=== PATIENT | female | born 1995 | race African-American/Black ===

== ENCOUNTER 2016-11-28 03:00 | Inpatient (IN) | payer BC, OTHER ==
[~2016-11-28] VITALS: Ht 149.9 cm; Wt 45.4 kg
--- NOTE | 2016-11-28 03:26 | EMERGENCY ROOM VISIT NOTE ---
History Report prepared by Kehinde: French Ybarra Under the Supervision of: Dr. Nalini Villalobos D.O. First contact with patient: 03:04 Chief Complaint: MENTAL HEALTH EVALUATION Stated Complaint: MENTAL HEALTH History of Present Illness The patient is a 21 year old female who presents to the Emergency Room with complaints of resolved suicidal thoughts beginning today. She has a history of depression. She states that she cut herself today on her left wrist and right leg. The patient states that she has felt depressed lately because she feels that her boyfriend doesn't love her as much as she likes him. Per police, the patient made statements about wanting to hurt herself today. They explain that the patient has a history of suicide attempts, and made two attempts last year. Police states that the patient's two attempts were when she walked out into traffic, and attempted an overdose on pills. The patient admits to drinking alcohol today. Source of History: patient, police Onset: Today Quality: other (suicidal thoughts ) Timing: resolved Review of Systems See HPI for pertinent positives & negatives. A total of 10 systems reviewed and were otherwise negative. Past Medical & Surgical Medical Problems: (1) Depression (2) No active medical problems (3) UTI (urinary tract infection) Family History No pertinent family history stated. Social History Smoking Status: Never Smoker Marital Status: single Housing Status: lives with roommate Occupation Status: [employer] student Current/Historical Medications Scheduled Control Pills ( Control Pills), 1 TAB PO DAILY Omeprazole (Prilosec), 20 MG PO DAILY Sertraline (Zoloft), 50 MG PO DAILY Allergies Coded Allergies: Shellfish (Verified Allergy, Intermediate, GI SYMPTOMS, 11/28/16) Uncoded Allergies: All fruit (Allergy, Unknown, RASH, 11/28/16) Physical Exam Vital Signs Date Time Temp Pulse Resp B/P Pulse Ox O2 Delivery O2 Flow Rate FiO2 11/28/16 07:20 82 16 104/53 96 Room Air 11/28/16 05:15 90 18 113/63 96 Room Air 11/28/16 03:17 37.0 95 18 135/73 99 Room Air Physical Exam Psych: Admits to suicidal ideation. HEENT: Head - normocephalic and atraumatic Pupils are equal, round, and reactive to light. Extraocular eye muscles are intact, and sclera are anicteric. Nose - moist nasal mucosa without discharge. Mouth - moist buccal mucosa. Oropharynx is nonerythematous and there is no tonsillar exudate or edema noted. Neck: Supple; no JVD, nuchal rigidity, cervical lymphadenopathy. Heart: Regular rate and rhythm. There is a normal S1 and S2 with no murmurs, clicks, or gallops appreciated. Lungs: Clear to auscultation bilaterally with no wheezes, rales, or rhonchi. Abdomen: Soft, completely nontender, nondistended, with good bowel sounds. There are no palpable pulsatile masses or hepatosplenomegaly. There is no guarding, rigidity, or rebound noted. Extremities: No evidence of cyanosis, clubbing, or edema. There are easily palpable peripheral pulses. Vertical incisions to the left ventral forearm. Horizontal incisions to the left ventral thigh. Skin: warm and dry with good turgor and no rashes. Medical Decision & Procedures Laboratory Results 11/28/16 04:18 11/28/16 04:06 Test 11/28/16 03:10 11/28/16 03:20 11/28/16 04:06 11/28/16 04:18 Urine Opiates Screen NEG (NEG) Urine Methadone, Qualitative NEG (NEG) Urine Barbiturates NEG (NEG) Urine Phencyclidine (PCP) Level NEG (NEG) Ur Amphetamine/Methamphetamine NEG (NEG) MDMA (Ecstasy) Screen NEG (NEG) Urine Benzodiazepines Screen NEG (NEG) Urine Cocaine Metabolite NEG (NEG) Urine Marijuana (THC) NEG (NEG) Urine Color YELLOW Urine Appearance CLEAR (CLEAR) Urine pH 5.0 (4.5-7.5) Urine Specific [place] 1.001 (1.000-1.030) Urine Protein TRACE (NEG) Urine Glucose (UA) NEG (NEG) Urine Ketones NEG (NEG) Urine Occult Blood NEG (NEG) Urine Nitrite NEG (NEG) Urine Bilirubin NEG (NEG) Urine Urobilinogen NEG (NEG) Urine Leukocyte Esterase NEG (NEG) Urine WBC (Auto) 0 /hpf (0-5) Urine RBC (Auto) 0-4 /hpf (0-4) Urine Hyaline Casts (Auto) 1-5 /lpf (0-5) Urine Epithelial Cells (Auto) 5-10 /lpf (0-5) Urine Bacteria (Auto) NEG (NEG) Urine Test NEG (NEG) Anion Gap 10.0 mmol/L (3-11) Est Creatinine Clear Calc Drug Dose 90.1 ml/min Estimated GFR () 145.9 Estimated GFR (Non- 125.9 BUN/Creatinine Ratio 9.9 (10-20) Calcium Level 8.6 mg/dl (8.5-10.1) Total Bilirubin 0.2 mg/dl (0.2-1) Direct Bilirubin < 0.1 mg/dl (0-0.2) Aspartate Amino Transf (AST/SGOT) 11 U/L (15-37) Alanine Aminotransferase (ALT/SGPT) 18 U/L (12-78) Alkaline Phosphatase 47 U/L (45-117) Total Protein 7.6 gm/dl (6.4-8.2) Albumin 3.8 gm/dl (3.4-5.0) Thyroid Stimulating Hormone (TSH) 0.754 uIu/ml (0.300-4.500) Salicylates Level < 1.7 mg/dl (2.8-20) Acetaminophen Level < 2 ug/ml (10-30) Ethyl Alcohol mg/dL 152.0 mg/dl (0-3) Red Blood Count 4.31 M/uL (4.2-5.4) Mean Corpuscular Volume 85.8 fL (80-100) Mean Corpuscular Hemoglobin 29.2 pg (25-34) Mean Corpuscular Hemoglobin Concent 34.1 g/dl (32-36) RDW Standard Deviation 42.6 fL (36.4-46.3) RDW Coefficient of Variation 13.5 % (11.5-14.5) Mean Platelet Volume 10.1 fL (7.4-10.4) Laboratory results per my review. ED Course 0317: Past medical records reviewed. The patient was evaluated in room A6. A complete history and physical exam was performed. Laboratory studies were drawn as above. 0500: The patient will be medically cleared around 6am once her alcohol level was less than 80. 0636: I reassessed the patient. She is currently being evaluated by [address] [place] [address]. 0722: I checked in on the patient again. She is still resting comfortably. The staff from [facility]. or talking to the psychiatrist. 0751: I spoke with the staff from [address] [place] [address]. The patient is being signed in voluntarily. I signed the 201 paperwork. Medical Decision The patient is a 21 year old female who presents to the ED with suicidal thoughts. Differential diagnosis includes self-mutilation, suicide attempt, alcohol intoxication, mood disorder, as well as other etiologies were considered. Laboratory studies: No leukocytosis. Stable H&H. Alcohol of 152. Negative Tylenol and aspirin. Negative . Normal urinalysis. Normal glucose and TSH. Normal LFTs and renal function. This is a 21-year-old female patient who presents to the emergency department after drinking some alcohol, making suicidal threats and cutting her arm and leg with a razor. The patient has a history of depression and self-mutilation. She has had previous suicide attempts but no inpatient psychiatric stays. Once the patient was sober, she was willing to admit herself for inpatient psychiatric care. Impression Primary Impression: Suicidal ideation Additional Impression: Alcohol intoxication Scribe Attestation The scribe's documentation has been prepared under my direction and personally reviewed by me in its entirety. I confirm that the note above accurately reflects all work, treatment, procedures, and medical decision making performed by me. Departure Information Dispostion [facility] ([facility]) Referrals Kira Cerna D.O. (PCP) Patient Instructions My [facility] Problem Qualifiers
[2016-11-28 04:00] LABS: URINE APPEARANCE CLEAR (CLEAR); URINE BILIRUBIN NEG (NEG); URINE COLOR YELLOW; URINE NITRITE NEG (NEG); URINE SPECIFIC GRAVITY 1.001 (1.000-1.030); UROBILINOGEN NEG (NEG)
[2016-11-28 04:06] LABS: MANUAL MICROSCOPIC REQUIRED? NO; REVIEW REQ? NO
[2016-11-28 04:28] LABS: MEAN CELL VOLUME 85.8 fL (80-100); MEAN CORPUSCULAR HEMOGLOBIN 29.2 pg (25-34); MEAN CORPUSCULAR HGB CONC 34.1 g/dl (32-36); MEAN PLATELET VOLUME 10.1 fL (7.4-10.4); PLATELET COUNT 273 K/uL (130-400); RED BLOOD COUNT 4.31 M/uL (4.2-5.4); WHITE BLOOD COUNT 4.82 K/uL (4.8-10.8)
[2016-11-28] MEDS ORDERED: SERT50TA PO (04:32)
[2016-11-28 04:35] LABS: ALT/SGPT 18 U/L (12-78); AST/SGOT 11 U/L (15-37); BLOOD UREA NITROGEN 7 mg/dl (7-18); BUN/CREATININE RATIO 9.9 (10-20); CALCIUM 8.6 mg/dl (8.5-10.1); CARBON DIOXIDE 25 mmol/L (21-32); CHLORIDE 111 mmol/L (98-107); CREATININE 0.68 mg/dl (0.60-1.20); GLUCOSE 85 mg/dl (70-99); POTASSIUM 3.5 mmol/L (3.5-5.1); SODIUM 146 mmol/L (136-145)
[2016-11-28 04:38] LABS: ACETAMINOPHEN < 2 ug/ml (10-30)
[2016-11-28 04:45] LABS: ALKALINE PHOSPHATASE 47 U/L (45-117); THYROID STIMULATING HORMONE 0.754 uIu/ml (0.300-4.500)
[2016-11-28 07:20] VITALS: O2SAT 96
[2016-11-28] MEDS ORDERED: NURSING VERBAL MED ORDER ONE (07:30)
[2016-11-28] MEDS ORDERED: hydrOXYzine HCL 25 MG TAB PO PRN ×2 (08:00)
[2016-11-28] MEDS ORDERED: MAGNESIUM HYDROXIDE SUSP 30 ML UDC PO PRN (08:00)
[2016-11-28] MEDS ORDERED: BISMUTH SUBSALICYLATE PER ML OMNICELL CHARGE PO PRN (08:00)
[2016-11-28] MEDS ORDERED: ALUMINUM/MAGNESIUM SUSP 30 ML UDC PO PRN (08:00)
[2016-11-28] MEDS ORDERED: SODIUM CHLORIDE 0.65% NA SOLN 45 ML (OCEAN) PRN (08:00)
[2016-11-28 08:18] VITALS: BP 108/65; PULSE 90; TEMP 37.1; Ht 149.9 cm; Wt 45.4 kg
[2016-11-28] MEDS: ACETAMINOPHEN 325 MG TAB PO PRN (09:55)
[2016-11-28 13:06] LABS: BENZODIAZEPINE, URINE NEG (NEG); COCAINE,URINE NEG (NEG); PHENCYCLIDINE, URINE NEG (NEG)
[2016-11-28] MEDS ORDERED: PANTOprazole SOD 40 MG TAB PO STA (15:05)
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
[2016-11-28] MEDS: SERTRALINE HCL 50 MG TAB PO SCH (15:16)
[2016-11-29 07:01] VITALS: BP_SYST 118; BP_SYST 124; BP_DIAS 72; BP_DIAS 79; PULSE 73; PULSE 88; TEMP 36.8
[2016-11-29] MEDS: PANTOprazole SOD 40 MG TAB PO SCH (08:49)
[2016-11-29] MEDS ORDERED: PANTOprazole SOD 40 MG TAB PO SCH (09:00)
[2016-11-29] MEDS: SERTRALINE HCL 50 MG TAB PO SCH (09:01)
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
[2016-11-30] MEDS ORDERED: LEVORA PO STA (00:28)
[2016-11-30 06:56] VITALS: BP_SYST 110; BP_SYST 118; BP_DIAS 76; BP_DIAS 78; PULSE 72; PULSE 76; TEMP 37.1
[2016-11-30] MEDS: SERTRALINE HCL 50 MG TAB PO SCH (08:52)
[2016-11-30] MEDS: PANTOprazole SOD 40 MG TAB PO SCH (08:52)
--- NOTE | 2016-11-30 12:38 | Psychiatric Progress Notes ---
Progress Note Date of Service Nov 30, 2016. Interval History Hailey Jarrell is a 21-year-old female who currently lives in [place], [place] alone. Hailey Jarrell was admitted on a 201 voluntary commitment. Patient is admitted from home. The patient was brought to the ED by the police under a 302 warrant. Police were contacted by [employer] as pt was cutting herself at time of the call to [facility] and made suicidal comments Chief Complaint "Good". Subjective Patient was seen & assessed interval progress reviewed with Treatment Team. She says her mood is "better," and says "I just had one bad day, that's it." She has not worked on a safety plan and says she doesn't know what she could work on here. She says she is going to groups but nothing applies to her as "I already know all that." She is resistant to reviewing coping skills she's used in the past, "I don't know." Her boyfriend is coming in for a meeting today and she says she has no goals for it. She denies side effects from medication. She repots more anxiety and disrupted sleep on the unit, and "I'm always super tired." Denies problems with appetite, says she is "super hungry, and there's not enough food here." She wants to know "what can I do to get some more energy ?" She also wants to know when she can be discharged. Sleep Information Total Hours of Sleep: 5.00 Meal Information Percent of Breakfast Consumed: 75 Percent of Lunch Consumed: 50 Percent of Dinner Consumed: 90 Mental Status Exam During interview pt is: alert and oriented, cooperative (partially; answers questions, but is vague and often mumbles under her breath) Appearance: appropriately dressed, appropriately groomed Eye contact is: poor Motor behavior is: steady gait & station, no abnormal motor movements Speech: other (soft quiet voice) Affect: depressed, irritable, constricted (incongruent with stated mood) Mood is: other ("okay") Thought process: goal directed Thought content: reality based without delusions Suicidal thought are: denied Homicidal thoughts are: denied Hallucinations: denies auditory, denies visual Cognition: memory grossly intact, attention grossly intact, language grossly intact Intelligence estimated to be: average Insight: impaired Judgement: impaired Impression 21 year old [employer] student who has past h/o suicide attempts and SIB by cutting on thigh and forearm while speaking to [employer]. Police had to bring her to the emergency room, where she then signed in voluntarily. She has been on sertraline since summer 2015, self raised her dose to 100mg 2 months ago without involving her prescriber, and has been attending therapy at [facility]. They have referred her to the [facility] psych clinic, but she has not been seen there yet. She reports some activation occurring at times for 2 days, although not meeting threshold for hypomanic episodes, possible mood lability/activation from SSRI and/or mixed features in depressive episode, r/o bipolar d/o nos. Plan (1) Depression 11/28- 1. Differential diagnosis includes bipolar type II versus major depressive disorder. Reviewed potential for hypomanic symptoms, and noted mood lability and subthreshold hypomanic symptoms at times since zoloft self raised to 100mg. considered switching to another ssri or a mood stabilizer (such as Lamictal which was reviewed in detail). Pt prefers to maintain Zoloft for now and be monitored for mood instability and hypomanic activation with adjusting treatment as needed. informed consent to increase Zoloft to 125mg po qday as of 11/28 2. q15 min safety checks for SI 3. coordinate with aftercare including aiming to have psychiatrist appt establish at [facility] psych clinic 4. appt been set for 12/03 with therapist at psych clinic 11/29 - continue zoloft at 125mg qday for now, monitoring for GI s/e -addressing borderline personality traits -family meeting with bf set for 11/30 at 3pm (2) Alcohol intoxication 11/28 recommend reduction of alcohol usage with also recommendation of abstinence at this time given impact on presentation (3) Suicidal ideation 1- [id number] checks 2. address self cuttings and addressing other means to address emotional distress 3. assess for SI and address 4. raising zoloft to 125mg and monitoring for mood instability 5. coordinate with aftercare (4) Borderline personality disorder Has been referred to the [facility] psych clinic and will follow up there for therapy. Would benefit from DBT. Discharge / Aftercare Planning Psychiatrist: Name: Psych Clinic Date of Appointment: Dec 03, 2016 Therapist: Name: Ravindra at [facility] Visit Code E&M Code: 75770 Inventory Assets Strengths: willing to get treatment, engaging with provider Needs: outpatient psychiatric care, medication adjustment, addressing relationship concerns and ongoing outpt therapy Risk Factors Assessment : No Substance use disorders: No Previous attempt: Yes Family history of suicide: No Previous psychiatric stay: No Hopelessness: No Smoker: No Protective Factors Assessment : No Responsible for young children: No Data Vital Signs Last 24 Hrs: Date Time Temp Pulse Resp B/P Pulse Ox O2 Delivery O2 Flow Rate FiO2 11/30/16 06:56 37.1 76 16 118/78 72 110/76 Meds Administered Last 24 Hrs: Meds Administered (Past 24Hrs) Medications (Trade) Dose Ordered Sig/Sarah Route Start Time Stop Time Status Last Admin Dose Admin Sertraline HCl (Zoloft Tab) 125 mg DAILY PO 11/28/16 15:00 12/28/16 14:59 11/30/16 08:52 125 MG Pantoprazole Sodium (Protonix Tab) 40 mg NOW STAT PO 11/28/16 15:05 11/28/16 15:06 DC 11/28/16 15:15 40 MG Pantoprazole Sodium (Protonix Tab) 40 mg QAM PO 11/29/16 09:00 12/28/16 08:59 11/30/16 08:52 40 MG Non-Formulary Medication (Non-Formulary Patient'S Own Med) 1 ea NOW STAT PO 11/30/16 00:28 11/30/16 00:29 DC 11/30/16 00:36 1 EA Problem Qualifiers (1) Depression: Depression Type: major depressive disorder Major depression recurrence: single episode Active/Remission status: currently active Major depression episode severity: unspecified Qualified Codes: F32.9 - Major depressive disorder, single episode, unspecified
[2016-11-30] MEDS: LEVORA PO SCH (21:58)
[2016-12-01 07:03] VITALS: BP_SYST 104; BP_SYST 115; BP_DIAS 66; BP_DIAS 71; PULSE 73; PULSE 89; TEMP 37
[2016-12-01] MEDS: PANTOprazole SOD 40 MG TAB PO SCH (08:39)
[2016-12-01] MEDS: SERTRALINE HCL 50 MG TAB PO SCH (08:39)
--- NOTE | 2016-12-01 10:28 | Psychiatric Progress Notes ---
Progress Note Date of Service Dec 01, 2016. Interval History Hailey Jarrell is a 21-year-old female [employer] student who currently lives in [place] alone and presented on a 302 by police after they were contacted by [employer] as patient was cutting herself and made suicidal statements. She was admitted on a 201 voluntary commitment. Chief Complaint "Fine". Subjective Patient was seen & assessed interval progress reviewed with nursing. Staff report she is attending groups and participating. The psychosocial rehabilitation counselor spoke with her mother, who was upset about her health insurance and that the patient had been hospitalized. The patient signed releases for her mother and aunts, stating that they wanted to talk to staff and be updated on her treatment, but they never called. She had a family meeting with her boyfriend, and he reported that he thought the patient had borderline personality disorder. They discussed the criteria for this diagnosis, and he noted that she has mood swings , sees the world in black and white, is reactive with unpredictable anger outbursts, and splits. He has feared for his own safety around her, thinking that she might hurt him, although they denied that she had ever been violent. She talked about her tendency to make assumptions and to distort which she perceives in a negative way. She was able to identify anger as a trigger for her self-injurious behavior. She expects anger toward her mother for saying "suck it up and get over it," rather than worrying about her well-being. She said her mother is generally dismissive of mental health issues and tells her she should not be stressed out. Patient's boyfriend agreed to secure her medications and dispense them to her one day at a time, and also confirmed that she does not have access to a gun. There was some discussion about the possibility of couples therapy, which the patient did not want to pursue, as she felt she would be blamed for everything. There was a notable disconnect in her reports, that she was "fine," and her affect, where she appeared annoyed and angry, did not make eye contact, and leaned away from her boyfriend, repeatedly asking when the meeting would be over. My assessment, the patient is seen in her room where she is reading a book in bed. She wants to know if staff can bring her breakfast into her room, as she doesn't want to come out and eat in the day room. She states her mood is "fine, " and says she doesn't know why she needs to be here because "I feel fine now." It is very difficult to engage her, and she gives vague answers. She says that in her meeting with her boyfriend they talked about "how to stay more stable," but when asked what ideas she has to do this, she says "I don't know." She has not worked on her safety plan at all. She says she doesn't like groups because "I already know all that," and was encouraged to explore the barriers toward using the coping skills that she has and what prevented her from doing that on the day of admission. She repeatedly asked to be discharged. She was informed that her mother had requested to talk to this physician, and initially said she did not want information shared about her alcohol use of the fact that she was intoxicated at the time of admission. She was informed that it would not be appropriate to speak to her mother if she wants information to be misrepresented or withheld, and later came to the nurse' s station, demanding that this physician call her mother immediately to speak to her stating that all of her treatment information could be discussed. Spoke with the patient's mother, Joselyn, at her request. She wanted to know why the patient was admitted, "is she dangerous to herself," and was focused on her being discharged so she can take an exam. Attempted to review concerns about her safety and she redirected the conversation to her concerns about her missing schoolwork. Advised her that as discussed with the patient, she will likely be discharged tomorrow. Sleep Information Total Hours of Sleep: 3.50 Meal Information Percent of Breakfast Consumed: 75 Percent of Lunch Consumed: 60 Percent of Dinner Consumed: 75 Mental Status Exam During interview pt is: alert and oriented, other (poorly cooperative) Appearance: appropriately dressed, appropriately groomed Eye contact is: poor, other (refuses to make eye contact, staring at a book throughout the interview) Motor behavior is: no abnormal motor movements, other (seated in bed in no acute distress) Speech: other (minimal, irritable tone) Affect: depressed, irritable, constricted (incongruent with stated mood) Mood is: other ("fine") Thought process: goal directed Thought content: reality based without delusions Suicidal thought are: denied Homicidal thoughts are: denied Hallucinations: denies auditory, denies visual Cognition: memory grossly intact, attention grossly intact, language grossly intact Intelligence estimated to be: average Insight: impaired Judgement: impaired Impression 21 year old [employer] student who has past h/o multiple suicide attempts and SIB by cutting on thigh and forearm while speaking to [employer]. Police had to bring her to the emergency room on a 302 warrant, where she then signed in voluntarily. She has been on sertraline since summer 2015, and adjusted her dose on her own to 100mg 2 months ago without involving her physician. She has been attending therapy at [facility], and they have referred her to the [facility] psych clinic. She reports some activation occurring at times for 2 days, although not meeting threshold for hypomanic episodes, possible mood lability/ activation from SSRI, rule out mixed features in depressive episode, r/o bipolar d/o nos, rule out border line personality disorder. Plan (1) Depression 11/28- 1. Differential diagnosis includes bipolar type II versus major depressive disorder. Reviewed potential for hypomanic symptoms, and noted mood lability and subthreshold hypomanic symptoms at times since zoloft self raised to 100mg. considered switching to another ssri or a mood stabilizer (such as Lamictal which was reviewed in detail). Pt prefers to maintain Zoloft for now and be monitored for mood instability and hypomanic activation with adjusting treatment as needed. informed consent to increase Zoloft to 125mg po qday as of 11/28 2. q15 min safety checks for SI 3. coordinate with aftercare including aiming to have psychiatrist appt establish at [facility] psych clinic 4. appt been set for 12/03 with therapist at psych clinic 11/29 -continue zoloft at 125mg qday for now, monitoring for GI s/e -addressing borderline personality traits -family meeting with bf set for 11/30 at 3pm 12/01 - Boyfriend agreed to hold all medications and dispense daily after discharge. - Coordinate care with outpatient providers and ensure timely follow-up. - Patient to work on her discharge safety plan, which she has not yet started. (2) Alcohol intoxication 11/28 recommend reduction of alcohol usage with also recommendation of abstinence at this time given impact on presentation (3) Suicidal ideation 1- [id number] checks 2. address self cuttings and addressing other means to address emotional distress 3. assess for SI and address 4. raising zoloft to 125mg and monitoring for mood instability 5. coordinate with aftercare (4) Borderline personality disorder Has been referred to the [facility] psych clinic and will follow up there for therapy. Would benefit from DBT. 12/01 - boyfriend reports that she has many criteria for borderline personality disorder, and this likely explains anger outbursts, frantic efforts to avoid abandonment, self injury Discharge / Aftercare Planning Primary Care Physician: Name: [facility] Phone Number: [phone] Appointment Notes: as needed Psychiatrist: Name: Psych Clinic (referral) Phone Number: [phone] Date of Appointment: Dec 03, 2016 Time of Appointment: 600 pm Appointment Notes: referral will be made during the 12-03-16 apt for a psychiatrist Therapist: Name: Psych Clinic at [facility] Phone Number: [phone] Date of Appointment: Dec 02, 2016 Time of Appointment: 6:00 pm Visit Code E&M Code: 75079 Inventory Assets Strengths: willing to get treatment, engaging with provider Needs: outpatient psychiatric care, medication adjustment, addressing relationship concerns and ongoing outpt therapy Risk Factors Assessment : No Substance use disorders: No Previous attempt: Yes Family history of suicide: No Previous psychiatric stay: No Hopelessness: No Smoker: No Protective Factors Assessment : No Responsible for young children: No Data Vital Signs Last 24 Hrs: Date Time Temp Pulse Resp B/P Pulse Ox O2 Delivery O2 Flow Rate FiO2 12/01/16 07:03 37.0 73 16 115/71 89 104/66 Meds Administered Last 24 Hrs: Meds Administered (Past 24Hrs) Medications (Trade) Dose Ordered Sig/Sarah Route Start Time Stop Time Status Last Admin Dose Admin Non-Formulary Medication (Non-Formulary Patient'S Own Med) 1 ea HS PO 11/30/16 22:00 12/30/16 21:59 11/30/16 21:58 1 EA Non-Formulary Medication (Non-Formulary Patient'S Own Med) 1 ea NOW STAT PO 11/30/16 00:28 11/30/16 00:29 DC 11/30/16 00:36 1 EA Problem Qualifiers (1) Depression: Depression Type: major depressive disorder Major depression recurrence: single episode Active/Remission status: currently active Major depression episode severity: unspecified Qualified Codes: F32.9 - Major depressive disorder, single episode, unspecified
[2016-12-01] MEDS: ACETAMINOPHEN 325 MG TAB PO PRN (18:28)
[2016-12-01] MEDS: LEVORA PO SCH (21:40)
[2016-12-02 07:08] VITALS: BP_SYST 110; BP_SYST 114; BP_DIAS 65; BP_DIAS 72; PULSE 72; PULSE 89; TEMP 37.1
[2016-12-02] MEDS ORDERED: PANTOprazole SOD 40 MG TAB PO SCH (08:00)
[2016-12-02] MEDS ORDERED: ZLF50 PO (08:23)
--- NOTE | 2016-12-02 08:30 | Discharge Instructions ---
Discharge Information Report Includes Report will include the: Discharge Instructions & Summary Admission Admission Date / Time: Nov 28, 2016 at 07:33 Reason for Admission: Depressive Disorder Nos Discharge Discharge Diagnosis / Problem: Depression, borderline personality disorder Condition at Discharge: Fair Discharge Goals Goal(s): Improve function, Improve disease control, Learn about illness, Therapeutic intervention Activity Recommendations Activity Limitations: per Instructions/Follow-up section . Instructions / Follow-Up Instructions / Follow-Up . SPECIAL CARE INSTRUCTIONS: 1. Follow through with your scheduled aftercare appointments. If unable to keep an appointment, please call to reschedule. 2. Take your medication only as prescribed. Medication should not be changed or stopped without the approval of your doctor. In the event of worsening symptoms or concerns about side effects, contact your doctor immediately. 3. Utilize new healthy coping skills, anger management skills, and stress management skills learned during your hospitalization. Journal feelings and process them with a support person. Identify stressors or situations that may result in relapse, deterioration or inappropriate behaviors and develop a plan to deal with those issues. 4. If your coping skills are ineffective and you are in crisis, contact your outpatient providers for direction. If unable to reach your providers, please call the [facility] HELP LINE AT or go to the closest Emergency Room. 5. Do not drink alcohol or take un-prescribed drugs. Do not adjust your medication doses on your own, and discuss concerns about medications with your doctor. 6. You have been provided with the Mental Health Advance Directives Pamphlet for your review. AFTERCARE APPOINTMENTS: * Please call your insurance company prior to your scheduled appointment to confirm your aftercare providers are covered. Take your insurance information to your appointments. . Discharge / Aftercare Planning Primary Care Physician: Name: [facility] Phone Number: [phone] Appointment Notes: as needed Psychiatrist: Name: [facility] (referral) Phone Number: [phone] Date of Appointment: Dec 03, 2016 Time of Appointment: 600 pm Appointment Notes: referral will be made during the 12-03-16 for a psychiatrist Therapist: Name Of Therapist: [facility] at [facility] Phone Number: [phone] Date of Appointment: Dec 02, 2016 Time of Appointment: 6:00 pm . Follow-Up Care Plan for Follow-Up Care: See above. Current Hospital Diet Patient's current hospital diet: Regular Diet Discharge Diet Recommended Diet: Regular Diet Procedures Procedures Performed: No Pending Studies Pending Studies at Discharge: No Medical Emergencies . Who to Call and When: Medical Emergencies: For questions or emergencies related to your hospital stay, please contact the Inpatient Behavioral Health Unit at [phone]. A economics department chair is on-call 26/04 for the Behavioral Health Unit for emergencies At any time you feel your situation is an emergency, you may also call 911 immediately. . Non-Emergent Contact Non-Emergency issues call your: Psychiatrist, Therapist Advance Directives Existing Advance Directive: No Do You Have an Existing Mental: No Existing Living Will: No Existing Power of Retarder Operator: No Advance Directives Info Given: To Pt/S.O. Discharge Summary Admission HPI Per the Admitting provider: Patient endorsed long standing depressive symptoms since about age 16. She endorsed being on zoloft since April 2016 [id number] being rx'd by a general doctor that she last saw in April 2016 per pt and has been using refills of the script since then. 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 ) She also only took one 50mg pill yesterday due to supply concerns. She reports some improvement in her severe depression since being on Zoloft at 100mg but continues to be blah, withdrawn and hard to get going, missing classes and only partial improvements in her sense lf hope and worth. She reported tthat she used ot have outbursts when upset by interactions with her boyfriend (tied to small frustrations that would impact her strongly) and would break up and then undo/threw something at the floor, yell) but she denied having any such "outbursts" in the past 2 months. She endorsed drinking alcohol once a week. She endorsed having 1-2 days of elevated mood, almost euphoric, decreased need for sleep, more extroverted, more active without other hypomanic symptoms during past 6 weeks, about 4-5 times, denying having such experiences prior to the past 2 months. She denied any other h/o hypomanic symptoms. She denied irritability when more lifted in mood and denied negative impact in her functioning. She denied any h/o psychotic features. She denied any h/o psychotic features. Pt was brought to the ER last night by police on a 302 warrant with [facility] help calling the police. Pt had called can help because she was upset her boyfriend not ready to be engaged and feeling this meant he does not love her as much as she loves him and that he comment of him not being ready for that step at this time meant he was not interested in ever being ready. She describes him as quite supportive overall. She superficially cut herself on her L forearm and R thigh with a razor blade just prior to and during the phone call with [facility] and it appears she was making suicidal comments as well. She describes this comments as passive SI related but these was some report that the comments were perhaps more active in nature. Of note, pt had drank alcohol last night prior to her conversation wit her boyfriend and had a blood alcohol level of 160. in the ER. She denied any h/o other substance usage. She had been seeing a therapist at [facility] and refrred to start at the [facility], appt this . She denied psychiatric appointments to date. Admission Exam Per the Admitting provider: Please see admission H&P. Hospital Course (1) Depression 11/28- 1. Differential diagnosis includes bipolar type II versus major depressive disorder. Reviewed potential for hypomanic symptoms, and noted mood lability and subthreshold hypomanic symptoms at times since zoloft self raised to 100mg. considered switching to another ssri or a mood stabilizer (such as Lamictal which was reviewed in detail). Pt prefers to maintain Zoloft for now and be monitored for mood instability and hypomanic activation with adjusting treatment as needed. informed consent to increase Zoloft to 125mg po qday as of 11/28 2. q15 min safety checks for SI 3. coordinate with aftercare including aiming to have psychiatrist appt establish at [facility] psych clinic 4. appt been set for 12/03 with therapist at psych clinic 11/29 - continue zoloft at 125mg qday for now, monitoring for GI s/e - addressing borderline personality traits - family meeting with bf set for 11/30 at 3pm 12/01 - Boyfriend agreed to hold all medications and dispense daily after discharge. - Coordinate care with outpatient providers and ensure timely follow-up. - Patient to work on her discharge safety plan, which she has not yet started. 12/02 - Requesting discharge, able to review safety plan, has outpatient appointments. (2) Alcohol intoxication 11/28 recommend reduction of alcohol usage with also recommendation of abstinence at this time given impact on presentation (3) Suicidal ideation 1- [id number] checks 2. address self cuttings and addressing other means to address emotional distress 3. assess for SI and address 4. raising zoloft to 125mg and monitoring for mood instability 5. coordinate with aftercare (4) Borderline personality disorder Has been referred to the [facility] psych clinic and will follow up there for therapy. Would benefit from DBT. 12/01 - boyfrienbashir reports that she has many criteria for borderline personality disorder, and this likely explains anger outbursts, frantic efforts to avoid abandonment, self injury Risk Factors Assessment : No /single/: Yes Access to guns: No Health problems: No Mental Health Diagnoses: Yes Substance use disorders: No Previous attempt: Yes Family history of suicide: No Previous psychiatric stay: No Hopelessness: No Smoker: No Protective Factors Assessment : No Responsible for young children: No Employed: No Stable relationships: Yes Supportive family: Yes Absence of risk factors above: Yes (the patient's mood has improved with medication adjustments. She has consistently denied suicidal thoughts in the hospital, and has not engaged in self-injurious behavior. She is attending groups, eating and sleeping well, taking medications as prescribed, and performing her ADLs independently. She has outpatient appointment scheduled. She is requesting discharge, and as is she is no longer at acute risk of harm to herself, can be managed as an outpatient at this time.) Day of Discharge Assessment Hospital Course: The patient's sertraline was increased on admission, and she tolerated it well. She told staff that she had been diagnosed with borderline personality disorder after assessment at the [facility] psych clinic. She denied suicidality on the unit. Her boyfriend visited frequently, and she was pleased that he had walked to the hospital to see her, feeling that this showed that he cared. She discussed concerns that her mental health issues might make him question their relationship, and talked about how he broke up with her over winter break, but then they got back together quickly. She agreed to a family meeting with her boyfriend, which was held on the 2015. Her boyfriend discussed borderline personality disorder and that he feels the characteristics manage her well. He talked about her [id number] thinking, big mood swings, splitting, anger outbursts and fears that she might hurt him when angry, and reactivity. There was also discussion of the patient's tendency to assume the worst, keep her feelings in, and harm herself when she feels angry. There was some exploration of her anger towards her mother, as when her mother called in and spoke with staff, she was focused on insurance and financial issues rather than the patient's well-being. The patient shared that her mother tends to dismiss her mental health issues and tell her she has no reason to be stressed out. Her boyfriend agreed to secure her medications at home and dispense them to her daily. There was some discussion of couples counseling, which the patient was reluctant to agree to, stating she thought she would be blamed for everything. It was noted that the patient said her mood was fine, but looked annoyed and angry, did not make eye contact, stayed curled up in a blanket, and leaned away from her boyfriend. Although she attended groups on the unit, she expressed a lack of interest in therapy, stating that it had never worked for her before. Borderline traits were evident on the unit, as she became very upset when her boyfriend told her he couldn't visit due to schoolwork, stating she felt rejected, got into an argument with him and hung up on him. She spoke to her mother frequently on the phone, and was focused on being discharged quickly. Day of Discharge Assessment: Patient reports her mood is "fine," and continues to deny suicidal ideation and urges to harm herself. She shows poor insight into the episode that led to her admission, and is resistant to working on healthy ways to cope, saying she "feels fine now," and minimizes her self- injurious behavior prior to admission. She is able to review her discharge safety plan, and denies any concerns for harming herself at this time. She is requesting discharge, and is anxious to return to school, stating that she plans to attend class today. She is willing to follow-up with her outpatient providers at the [facility] clinic. She denies side effects to sertraline. Well nourished, well developed female appearing stated age. Casually dressed and adequately groomed. Calm and cooperative. Seated in NAD, with fair eye contact and no abnormal movements. Speech is normal rate, volume, and tone. Mood is "fine," and affect is stable and congruent. Thoughts are linear, logical and goal directed. The patient denied suicidal and homicidal ideation and was able to safety plan. No paranoia, delusions, or hallucinations, and did not appear to be responding to internal stimuli. Cognition was grossly intact. Alert and oriented to person, place and time. Intelligence is consistent with level of education. Insight and and judgment are poor. Laboratory Refer to printed laboratory reports Total Time Total Time Spent (min): Greater than 30 minutes Total Time Included: examination of the patient, discharge planning, medication reconciliation Tobacco Cessation at Discharge FDA approved Prescription: non-smoker Problem Qualifiers (1) Depression: Depression Type: major depressive disorder Major depression recurrence: single episode Active/Remission status: currently active Major depression episode severity: unspecified Qualified Codes: F32.9 - Major depressive disorder, single episode, unspecified
[2016-12-02] MEDS: SERTRALINE HCL 50 MG TAB PO SCH (08:43)
[2017-01-02] MEDS ORDERED: BCPILLS PO (04:32)
[2017-01-02] MEDS ORDERED: PRLSR20 PO (04:32)
== END 2016-12-02 13:55 | disposition home or self-care (01) | DRG 881 ==
LOC: EDBD 03:00 → C.EDA 03:02 → C.MHU 07:33
PROVIDERS: ADMIT Psychiatry & Neurology Psychiatry; ATTEND Psychiatry & Neurology Child & Adolescent Psychiatry
DX: F32.9 Major depressive disorder, single episode, unspecified (principal); R45.851 Suicidal ideations; F60.3 Borderline personality disorder; F10.129 Alcohol abuse with intoxication, unspecified; S51.812A Laceration without foreign body of left forearm, initial encounter; S71.111A Laceration without foreign body, right thigh, initial encounter; X78.8XXA Intentional self-harm by other sharp object, initial encounter; Z79.899 Other long term (current) drug therapy; Z79.3 Long term (current) use of hormonal contraceptives; Z91.5 Personal history of self-harm

== ENCOUNTER 2017-01-02 21:35 | Emergency (ER) | payer BC, OTHER ==
[~2017-01-02] VITALS: Ht 149.9 cm; Wt 47.8 kg
[~2017-01-02 21:35] MED LIST: BCPILLS PO; PRLSR20 PO; ZLF50 PO
[2017-01-02 21:39] VITALS: TEMP 36.8; Ht 149.9 cm; Wt 47.8 kg
[2017-01-02] MEDS ORDERED: SODIUM CHLORIDE 0.9% 1000ML 1,000 ML IV STA (22:14)
[2017-01-02] MEDS ORDERED: ONDANSETRON INJ 2 MG/ML 2 ML VIAL IV STA (22:14)
[2017-01-02] MEDS ORDERED: MoRPHine SULFATE 2 MG/ML CARP IV STA (22:14)
[2017-01-02 22:36] LABS: BASO % 0.1 %; BASO ABS # 0.01 K/uL (0-0.2); COMPLETE YES; EOS % 1.5 %; LYMPH % 36.5 %; LYMPH ABS # 2.47 K/uL (1.2-3.4); MEAN CELL VOLUME 87.4 fL (80-100); MEAN CORPUSCULAR HEMOGLOBIN 28.8 pg (25-34); MEAN CORPUSCULAR HGB CONC 32.9 g/dl (32-36); MEAN PLATELET VOLUME 11.5 fL (7.4-10.4); MONO % 6.8 %; NEUT % 55.1 %; PLATELET COUNT 253 K/uL (130-400); RED BLOOD COUNT 4.69 M/uL (4.2-5.4); WHITE BLOOD COUNT 6.77 K/uL (4.8-10.8)
[2017-01-02] MEDS ORDERED: SERT50TA PO (22:40)
[2017-01-02 22:45] LABS: URINE APPEARANCE CLEAR (CLEAR); URINE BILIRUBIN NEG (NEG); URINE COLOR YELLOW; URINE NITRITE NEG (NEG); URINE SPECIFIC GRAVITY 1.024 (1.000-1.030); UROBILINOGEN NEG (NEG); ZZUR CULT IF INDIC CLEAN CATCH NO
[2017-01-02 22:49] LABS: MANUAL MICROSCOPIC REQUIRED? NO; REVIEW REQ? NO
[2017-01-02 22:50] LABS: C-REACTIVE PROTEIN < 0.29 mg/dl (0-0.29); CREATININE 0.77 mg/dl (0.60-1.20); GLUCOSE 77 mg/dl (70-99)
[2017-01-02 22:51] LABS: ALKALINE PHOSPHATASE 50 U/L (45-117); ALT/SGPT 18 U/L (12-78); BLOOD UREA NITROGEN 11 mg/dl (7-18); CALCIUM 8.9 mg/dl (8.5-10.1)
[2017-01-02 22:53] LABS: BUN/CREATININE RATIO 13.6 (10-20); CARBON DIOXIDE 27 mmol/L (21-32); CHLORIDE 107 mmol/L (98-107); POTASSIUM 3.9 mmol/L (3.5-5.1); SODIUM 143 mmol/L (136-145)
[2017-01-02 22:58] LABS: AST/SGOT 11 U/L (15-37)
[2017-01-02] MEDS ORDERED: OPTIRAY 320 IV PRN (23:15)
[2017-01-02] MEDS ORDERED: MoRPHine SULFATE 4 MG/ML 1 ML CARP\\VIAL IV STA (23:48)
--- NOTE | 2017-01-03 01:44 | EMERGENCY ROOM VISIT NOTE ---
History First contact with patient: 21:54 Chief Complaint: ABDOMINAL PAIN Stated Complaint: NAUSEA,STOMACH PAIN NEXT TO BELLY BUTTON HEADACHE Nursing Triage Summary: Patient states "Last Wednesday, I got really short of breath with nausea, vomiting, diarrhea and abdominal pain. Those symptoms lasted until Wednesday. Since then I have had pain in my right abdomen with nausea. I haven't been able to move my bowels as well this week. I also have some pain in my right mid to lower back. I have a history of severe UTIs with renal failure." History of Present Illness The patient is a 21 year old female who presents to the Emergency Department by private vehicle for evaluation of her RIGHT-sided abdominal pain as well as back pain. She's had her symptoms for approximately one week. Her symptoms progressively worsening CVA which prompted visit to the emergency department. She reports chills with associated nausea. She is not vomiting. She reports a significant history of previous abdominal pain complaints related to a history of renal failure. She is tried [id number] medications for her symptoms. She rates her current discomfort as an 8/10. She denies any headaches, dizziness, lightheadedness, neck pain/stiffness, chest pain, palpitations, short of breath, hematemesis, hematochezia, melena, hematuria, or dysuria. She denies a chance for . She denies any previous abdominal surgeries. Review of Systems A complete 10-point Review of Systems was discussed with the patient, with pertinent positives and negatives listed in the History of Present Illness. All remaining Review of Systems questions can be considered negative unless otherwise specified. Past Medical/Surgical History Medical Problems: (1) Borderline personality disorder (2) Depression (3) No active medical problems (4) UTI (urinary tract infection) Social History Smoking Status: Never Smoker Smokeless Tobacco Use: No Drug Use: none Marital Status: single Housing Status: lives with roommate Occupation Status: [employer] student Current/Historical Medications Scheduled Control Pills ( Control Pills), 1 TAB PO DAILY Omeprazole (Prilosec), 20 MG PO DAILY Sertraline (Zoloft), 125 MG PO DAILY Allergies Coded Allergies: Shellfish (Verified Allergy, Intermediate, GI SYMPTOMS, 01/02/17) Uncoded Allergies: All fruit (Allergy, Unknown, RASH, 11/28/16) Physical Exam Vital Signs Date Time Temp Pulse Resp B/P Pulse Ox O2 Delivery O2 Flow Rate FiO2 01/03/17 02:01 73 16 129/86 99 Room Air 01/03/17 00:51 78 18 129/83 98 Room Air 01/02/17 23:27 79 16 116/74 97 Room Air 01/02/17 21:39 36.8 85 18 137/83 100 Room Air Pain Rating (0-10): 8 Physical Exam VITAL SIGNS - Vital signs and nursing notes were reviewed. GENERAL - 21-year-old female appearing her stated age who is in no acute distress. Communicates well with provider and answers questions appropriately. LUNGS - Chest wall symmetric without accessory muscle use, intercostals retractions, or central cyanosis. Normal vesicular breath sounds CTA B/L. No wheezes, rales, or rhonchi appreciated. CARDIAC - RRR with S1/S2. No murmur, rubs, or gallops appreciated. ABDOMEN - Abdominal contour flat and without pulsations or visible masses. BS normoactive all four quadrants. Moderate tenderness to palpation appreciated in the RIGHT lower quadrant. No guarding. No Rebound Tenderness. Negative Rovsing' s. Negative Eagle's. No palpable masses, hepatosplenomegaly, or ascites noted. EXTREMITIES - No clubbing or peripheral cyanosis. No pretibial edema present. +3 /5 radial and dorsalis pedis pulses palpated throughout. PSYCH - A&Ox3 and cooperates fully with examiner. Pt is very pleasant and interacts well with examiner. Medical Decision & Procedures ER Provider Diagnostic Interpretation: Radiological imaging and reports were reviewed by myself. Radiologist's Interpretation per [facility] as follows: CT ABDOMEN & PELVIS: Evaluation somewhat limited by paucity of inra-abdominal fat and oral contrast not reaching the cecum, but normal sized appendix likely identified, predominantly air-filled (images 64-70, series 2). No findings to suggest acute appendicitis. No free air or free fluid. Stomach is distended with oral contrast but otherwise unremarkable. No evidence of bowel obstruction. The liver, spleen, pancreas, gallbladder and kidneys are unremarkable. Laboratory Results 01/02/17 21:59 Red Blood Count 4.69, Mean Corpuscular Volume 87.4, Mean Corpuscular Hemoglobin 28.8, Mean Corpuscular Hemoglobin Concent 32.9, Mean Platelet Volume 11.5, Neutrophils (%) (Auto) 55.1, Lymphocytes (%) (Auto) 36.5, Monocytes (%) (Auto) 6.8, Eosinophils (%) (Auto) 1.5, Basophils (%) (Auto) 0.1, Neutrophils # (Auto) 3.73, Lymphocytes # (Auto) 2.47, Monocytes # (Auto) 0.46, Eosinophils # (Auto) 0.10, Basophils # (Auto) 0.01 01/02/17 21:59 Test 01/02/17 21:54 01/02/17 21:59 Urine Color YELLOW Urine Appearance CLEAR (CLEAR) Urine pH 6.0 (4.5-7.5) Urine Specific Grover 1.024 (1.000-1.030) Urine Protein NEG (NEG) Urine Glucose (UA) NEG (NEG) Urine Ketones NEG (NEG) Urine Occult Blood NEG (NEG) Urine Nitrite NEG (NEG) Urine Bilirubin NEG (NEG) Urine Urobilinogen NEG (NEG) Urine Leukocyte Esterase NEG (NEG) Urine Test NEG (NEG) White Blood Count 6.77 K/uL (4.8-10.8) Red Blood Count 4.69 M/uL (4.2-5.4) Hemoglobin 13.5 g/dL (12.0-16.0) Hematocrit 41.0 % (37-47) Mean Corpuscular Volume 87.4 fL (80-100) Mean Corpuscular Hemoglobin 28.8 pg (25-34) Mean Corpuscular Hemoglobin Concent 32.9 g/dl (32-36) Platelet Count 253 K/uL (130-400) Mean Platelet Volume 11.5 fL (7.4-10.4) Neutrophils (%) (Auto) 55.1 % Lymphocytes (%) (Auto) 36.5 % Monocytes (%) (Auto) 6.8 % Eosinophils (%) (Auto) 1.5 % Basophils (%) (Auto) 0.1 % Neutrophils # (Auto) 3.73 K/uL (1.4-6.5) Lymphocytes # (Auto) 2.47 K/uL (1.2-3.4) Monocytes # (Auto) 0.46 K/uL (0.11-0.59) Eosinophils # (Auto) 0.10 K/uL (0-0.5) Basophils # (Auto) 0.01 K/uL (0-0.2) RDW Standard Deviation 44.7 fL (36.4-46.3) RDW Coefficient of Variation 13.9 % (11.5-14.5) Immature Granulocyte % (Auto) 0.0 % Immature Granulocyte # (Auto) 0.00 K/uL (0.00-0.02) Erythrocyte Sedimentation Rate 19 mm/hr (0-21) Anion Gap 9.0 mmol/L (3-11) Est Creatinine Clear Calc Drug Dose 79.5 ml/min Estimated GFR () 128.8 Estimated GFR (Non- 111.1 BUN/Creatinine Ratio 13.6 (10-20) Calcium Level 8.9 mg/dl (8.5-10.1) Magnesium Level 2.0 mg/dl (1.8-2.4) Total Bilirubin 0.3 mg/dl (0.2-1) Aspartate Amino Transf (AST/SGOT) 11 U/L (15-37) Alanine Aminotransferase (ALT/SGPT) 18 U/L (12-78) Alkaline Phosphatase 50 U/L (45-117) C-Reactive Protein < 0.29 mg/dl (0-0.29) Total Protein 7.8 gm/dl (6.4-8.2) Albumin 3.8 gm/dl (3.4-5.0) Globulin 4.0 gm/dl (2.5-4.0) Albumin/Globulin Ratio 1.0 (0.9-2) Lipase 278 U/L (73-393) Medications Administered Medications (Trade) Dose Ordered Sig/Sarah Route Start Time Stop Time Status Last Admin Dose Admin Sodium Chloride (Nss 1000ml) 1,000 ml @ 999 mls/hr Q1H1M STAT IV 01/02/17 22:14 01/02/17 23:14 DC 01/02/17 22:38 999 MLS/HR Ondansetron HCl (Zofran Inj) 4 mg NOW STAT IV 01/02/17 22:14 01/02/17 22:18 DC 01/02/17 22:43 4 MG Morphine Sulfate (MoRPHine SULFATE INJ) 2 mg NOW STAT IV 01/02/17 22:14 01/02/17 22:18 DC 01/02/17 22:46 2 MG Morphine Sulfate (MoRPHine SULFATE INJ) 4 mg NOW STAT IV 01/02/17 23:48 01/02/17 23:49 DC 01/02/17 23:53 4 MG Tram[facility] HCl [facility] 01/03/17 01:45 01/03/17 01:46 DC 01/03/17 01:55 1 HOMEPACK ED Course Patient was seen and evaluated by myself. Labs were drawn, saline lock in place. The patient was hydrated with a 1000 mL normal saline bolus. She received 2 mg morphine and [address] of the abdomen and pelvis with IV normal contrast was ordered. The patient was treated with an additional formerly grams morphine for ongoing pain. Laboratory results demonstrate no acute leukocytosis, worrisome anemia, or bandemia. ESR and CRP are both negative. Urinalysis does not suggest infection. Urine is negative. CT results above. Laboratory results and imaging studies were reviewed with the patient who acknowledges understanding. The patient feels much pat at this time. She was educated on worrisome symptoms for return visit to the emergency department. Patient discharged home in good condition. Medical Decision Given the patient's presentation and stated complaints, I did elect to perform the above-mentioned workup. The patient presents today with ongoing symptoms of abdominal pain. She has no fever leukocytosis. She does have some mild tenderness to palpation in the RIGHT lower quadrant. CT results were otherwise unremarkable. Her pain was adequately controlled the emergency department. The patient will follow up [facility] services or primary care provider from today's visit. She will return for any changing or worsening symptoms. Patient discharged home afebrile and in good condition. In the evaluation and treatment of this patient, the following differential diagnoses were considered: Appendicitis, Diverticulitis, Diverticulosis, Colitis , Ischemic Colitis, Inflammatory Bowel Disease, Irritable Bowel Disease, Ovarian Torsion, Ectopic, Kidney Stone, Pyelonephritis, Hydronephrosis, Cholecystitis, Ascending Cholangitis, Choledocholithiasis, GERD. Impression Primary Impression: Abdominal pain Departure Information Dispostion Home / Self-Care Condition GOOD Referrals Kira Cerna D.O. (PCP) Patient Instructions Abdominal Pain - [facility], [facility] Additional Instructions You have been treated in the Emergency Department your Abdominal Pain. Laboratory results and imaging studies have ruled out any emergent causes for your abdominal pain which would warrant admission or surgery. You have been provided Ultram to be used for pain control. You cannot drive or consume alcohol while on this medicine. This medicine should only be used for pain that cannot be controlled with vkpy-bga-[id number] pain medicines. For pain control, you can use the following enrt-xag-brbuizm medicines (if >12 yo): - Regular strength (325mg/tab) Tylenol (acetaminophen) 2 tabs every 4-6 hours as needed. Do not exceed 12 tablets in a 24 hour period. Avoid taking more than 4 grams (4000 mg) of Tylenol per day. This includes any other sources of acetaminophen you may take on a regular basis. - Regular strength (200 mg/tab) Advil (ibuprofen) 1-2 tabs every 4-6 hours as needed. Do not exceed a dose of 3200 mg per day. Drink plenty of water and stay well hydrated. As with any trip to the Emergency Department, you should follow-up with your Primary Care Provider from today's visit. Return to the emergency department if your symptoms persist despite treatment plan outlined above or if the following symptoms occur: increased fevers, chills , worsening nausea/vomiting, blood in your stool or urine. Problem Qualifiers Primary Impression: Abdominal pain Abdominal location: generalized Qualified Codes: R10.84 - Generalized abdominal pain
[2017-01-03] MEDS ORDERED: TRAMADOL HCL 50 MG HOME PACK PO ONE (01:45)
[2017-01-03 02:01] VITALS: BP 129/86; PULSE 73; O2SAT 99
--- NOTE | 2017-01-03 07:05 | DIAGNOSTIC IMAGING REPORT ---
CT ABD/PELVIS IV AND ORAL CONT CLINICAL HISTORY: Generalized abdominal pain COMPARISON STUDY: None. TECHNIQUE: Following the IV administration of 93 mL of Optiray-320, CT scan of the abdomen and pelvis was performed from the lung bases to the proximal femurs. Images are reviewed in the axial, sagittal, and coronal planes. IV contrast was administered without complication. CT DOSE: 279.39 mGy.cm FINDINGS: Lower chest: The heart is normal in size and configuration, without pericardial effusion. The lung bases and pleural spaces are clear. Liver: The contrast-enhanced liver is normal in size, contour, and attenuation. There is no intrahepatic biliary ductal dilatation. The hepatic veins and portal veins are patent. Gallbladder: Unremarkable. Spleen: Normal in size and attenuation. Pancreas: Unremarkable. Adrenal glands: Unremarkable. Kidneys: There is symmetric renal cortical enhancement. The kidneys are normal in size without hydronephrosis. Bowel: There are no transition zones indicate bowel obstruction. There is mild fecal retention. There is no evidence of acute diverticulitis. The appendix is difficult to visualize due to the paucity intra-abdominal fat. In addition contrast was not reached the cecum. There is an air-filled tubular structure adjacent to cecum, likely representing normal appendix. Peritoneum: There is no intraperitoneal free air or abdominal ascites. Vasculature: The abdominal aorta is normal in course and caliber. Adenopathy: None. Pelvic viscera: The bladder, and pelvic viscera are unremarkable. Skeletal structures: No destructive osseous lesions are seen. IMPRESSION: No acute abdominal or pelvic findings. No evidence of bowel obstruction. No evidence of free air. No acute inflammatory changes. Electronically signed by: Trenton Mello M.D. 01/03/2017 7:03 AM Dictated Date/Time: 01/03/2017 7:00 AM
== END 2017-01-03 02:03 | disposition home or self-care (01) ==
LOC: C.EDB 21:37 → C.EDC 01-03 02:03
DX: R10.84 Generalized abdominal pain (principal); F60.3 Borderline personality disorder